=== PATIENT | female | born 1980 | race Caucasian/White ===

== ENCOUNTER 2017-03-07 09:32 | Emergency (ER) | payer MEDICAID ==
[2017-03-07 09:33] VITALS: BMI 25.0
[2017-03-07 09:37] VITALS: BP 134/89; PULSE 57; RESP 16; TEMP 97.9; O2SAT 98
--- NOTE | 2017-03-07 09:51 | ED PDOC ---
Arrival/HPI - General Historian: Patient - History of Present Illness Time/Duration: 1 week Symptom Onset: Sudden Symptom Course: Worsening Quality: Aching, Stabbing Severity Level: Moderate - General Chief Complaint: Back Pain Time Seen by Provider: 03/07/17 09:36 - History of Present Illness Narrative History of Present Illness (Text): 03/07/17 09:50 36-year-old female presents today with a six-day history of right-sided neck pain. Patient states 6 days ago she woke up with pain and stiffness to the right side of the neck. She denies fevers or chills. Denies difficulty breathing or swallowing. Patient states she's been taking Advil for pain without improvement. Patient states her partner has been giving her massages at home. Patient states the pain is worsening and is now radiating into the right arm. No chest pain or shortness of breath. Denies any trauma or injury. Patient rates the pain as achy and shooting. (Soo Angel) Past Medical History - Provider Review Nursing Documentation Reviewed: Yes - Travel History Have you recently traveled outside [place] w/in the past 3 mons?: No - Infectious Disease Hx of Infectious Diseases: None - Tetanus Immunization Tetanus Immunization: Unknown - Past Medical History Past Medical History: No Previous - Psychiatric Hx Substance Use: No - Past Surgical History Past Surgical History: No Previous - Anesthesia Hx Anesthesia: No Hx Anesthesia Reactions: No Hx Malignant Hyperthermia: No - Suicidal Assessment Feels Threatened In Home Enviroment: No Family/Social History - Physician Review Nursing Documentation Reviewed: Yes Family/Social History: Unknown Family HX Smoking Status: Light Smoker < 10 Cigarettes Daily Hx Alcohol Use: Yes Frequency of alcohol use: Socially Hx Substance Use: No Hx Substance Use Treatment: No Allergies/Home Meds Allergies/Adverse Reactions: Allergies No Known Allergies Allergy (Verified 05/09/14 19:52) Review of Systems - Review of Systems Constitutional: absent: Fatigue, Fevers Respiratory: absent: SOB, Cough Cardiovascular: absent: Chest Pain, Palpitations Gastrointestinal: absent: Abdominal Pain, Nausea, Vomiting Genitourinary Female: absent: Dysuria, Frequency, Hematuria Musculoskeletal: Neck Pain. absent: Arthralgias, Back Pain Skin: absent: Rash, Pruritis Neurological: absent: Headache, Dizziness Psychiatric: absent: Anxiety, Depression Physical Exam Vital Signs Reviewed: Yes Temperature: Afebrile Blood Pressure: Normal Pulse: Regular Respiratory Rate: Normal Appearance: Positive for: Well-Appearing, Non-Toxic, Comfortable Pain Distress: None Mental Status: Positive for: Alert and Oriented X 3 - Systems Exam Head: Present: Atraumatic Mouth: Present: Moist Mucous Membranes Neck: Present: Paraspinal Tenderness (+ right sided cervical paraspinal tenderness and right sided trapezius tenderness. ). No: Normal Range of Motion (Stiff full rom of neck), Meningeal Signs, MIDLINE TENDERNESS Respiratory/Chest: Present: Clear to Auscultation, Good Air Exchange. No: Respiratory Distress, Accessory Muscle Use, Decreased Breath Sounds, Retracting , Tachypneic Cardiovascular: Present: Regular Rate and Rhythm Upper Extremity: Present: Normal Inspection, Normal ROM, NORMAL PULSES, Neurovascularly Intact, Capillary Refill < 2s. No: Tenderness, Swelling, Erythema, Deformity Neurological: Present: GCS=15 Skin: Present: Warm, Dry, Normal Color. No: Rashes Psychiatric: Present: Alert, Oriented x 3 Vital Signs Temp Pulse Resp BP Pulse Ox 03/07/17 09:36 97.9 F 57 L 16 134/89 98 Medical Decision Making ED Course and Treatment: 03/07/17 10:24 I was available for consultation during PA evaluation. The chart was reviewed by me, and I agree with disposition. The documented history was done by the physician [facility]. The documented physical exam was done by the physician [facility] [place] [facility]. The documented procedures were done by the physician [facility]. (Audie Zelaya) 03/07/17 09:53 Patient nontoxic well-appearing in no distress with stable vital signs. Toradol, Valium Patient reassessment: Feeling better with medications I advised to followup with the primary care physician/orthopedist within the next 2 days. Return if symptoms worsen persist or new symptoms develop Patient verbalizes understanding of discharge instructions and need for immediate followup. Impression: neck pain Motrin every 6 hours as needed for pain Valium: one tablet every 8 hours as needed for muscle spasms: May cause drowsiness Followup with the orthopedist within the next 2 days Followup with primary care physician within the next 2 days Return if symptoms worsen persist or if new symptoms develop (Soo Angel) - Medication Orders Current Medication Orders: Discontinued Medications Diazepam (Valium) 5 mg PO ONCE ONE Stop: 03/07/17 09:49 Last Admin: 03/07/17 10:01 Dose: 5 mg Ketorolac Tromethamine (Toradol) 60 mg IM STAT STA Stop: 03/07/17 09:49 Last Admin: 03/07/17 10:01 Dose: 60 mg Disposition/Present on Arrival - Present on Arrival Any Indicators Present on Arrival: No History of DVT/PE: No History of Uncontrolled Diabetes: No Urinary Catheter: No History of Decub. Ulcer: No History Surgical Site Infection Following: None - Disposition Have Diagnosis and Disposition been Completed?: Yes Disposition Time: 09:54 Patient Plan: Discharge - Disposition Diagnosis: Neck pain Disposition: HOME/ ROUTINE Patient Problems: Current Active Problems Problem Status Onset Neck pain Acute Condition: GOOD Additional Instructions: Motrin every 6 hours as needed for pain Valium: one tablet every 8 hours as needed for muscle spasms: May cause drowsiness Followup with the orthopedist within the next 2 days Followup with primary care physician within the next 2 days Return if symptoms worsen persist or if new symptoms develop Prescriptions: diaZEpam [Valium] 5 mg PO Q8 PRN #6 tab PRN Reason: Muscle Spasm Ibuprofen [Motrin] 600 mg PO Q6H PRN #20 tab PRN Reason: pain/fever reduction Referrals: Chris Marquez DO [Staff Provider] - Follow up with primary Ava Kelly MD [Staff Provider] - Follow up with primary Forms: [employer] (Yoruba)
== END 2017-03-07 11:00 | disposition home or self-care (01) ==
LOC: ED 09:32
DX: M54.2 Cervicalgia (principal)
CPT/HCPCS: 96372; 99283; J1885

== ENCOUNTER 2017-07-22 19:21 | Emergency (ER) | payer MEDICAID ==
[2017-07-22 19:22] VITALS: BMI 25.0
[2017-07-22 19:35] VITALS: TEMP 98.7
--- NOTE | 2017-07-22 19:52 | ED PDOC ---
Arrival/HPI - General Chief Complaint: ENT Problem Time Seen by Provider: 07/22/17 19:49 Historian: Patient - History of Present Illness Narrative History of Present Illness (Text): 07/22/17 19:51 37yo female who present with 3days history of yellow productive cough, nasal congestion, subjective fever, sore throat and body ache. States she took Zyrtec on Thursday without relieve. Denies sick contact, nausea, vomiting, diarrhea, any other complaint. Past Medical History - Provider Review Nursing Documentation Reviewed: Yes - Infectious Disease Hx of Infectious Diseases: None - Tetanus Immunization Tetanus Immunization: Unknown - Past Medical History Past Medical History: No Previous - Cardiac Hx Cardiac Disorders: No - Pulmonary Hx Respiratory Disorders: No - Neurological Hx Neurological Disorder: No - HEENT Hx HEENT Disorder: No - Renal Hx Renal Disorder: No - Endocrine/Metabolic Hx Endocrine Disorders: No - Hematological/Oncological Hx Blood Disorders: No - Integumentary Hx Dermatological Disorder: No - Musculoskeletal/Rheumatological Hx Musculoskeletal Disorders: No - Gastrointestinal Hx Gastrointestinal Disorders: No - Genitourinary/Gynecological Hx Genitourinary Disorders: No - Psychiatric Hx Psychophysiologic Disorder: No Hx Substance Use: No - Past Surgical History Past Surgical History: No Previous - Anesthesia Hx Anesthesia: No Hx Anesthesia Reactions: No Hx Malignant Hyperthermia: No - Suicidal Assessment Feels Threatened In Home Enviroment: No Family/Social History - Physician Review Nursing Documentation Reviewed: Yes Family/Social History: Unknown Family HX Smoking Status: Light Smoker < 10 Cigarettes Daily Hx Alcohol Use: Yes Hx Substance Use: No Hx Substance Use Treatment: No Allergies/Home Meds Allergies/Adverse Reactions: Allergies No Known Allergies Allergy (Verified 07/22/17 19:29) Home Medications: Home Meds Medication Instructions Recorded Confirmed Cetirizine HCl/Pseudoephedrine 1 tab PO PRN PRN 07/22/17 07/22/17 [Zyrtec-D Tablet] Ibuprofen [Motrin Tab] 400 mg PO Q6 PRN 07/22/17 07/22/17 Review of Systems - Physician Review All systems were reviewed & negative as marked: Yes - Review of Systems Constitutional: Fevers Eyes: Normal ENT: Sore Throat, Sinus Congestion Respiratory: Cough, Sputum. absent: SOB, Wheezing Cardiovascular: Normal Gastrointestinal: Normal Genitourinary Female: Normal Musculoskeletal: Normal Skin: Normal Neurological: Normal Endocrine: Normal Hemo/Lymphatic: Normal Psychiatric: Normal Physical Exam Vital Signs Reviewed: Yes Vital Signs Temp Pulse Resp BP Pulse Ox 07/22/17 19:31 98.7 F 64 17 154/75 H 97 Temperature: Afebrile Blood Pressure: Normal Pulse: Regular Respiratory Rate: Normal Appearance: Positive for: Well-Appearing, Non-Toxic, Comfortable Pain Distress: None Mental Status: Positive for: Alert and Oriented X 3 - Systems Exam Head: Present: Atraumatic, Normocephalic Pupils: Present: PERRL Extroacular Muscles: Present: EOMI Conjunctiva: Present: Normal Mouth: Present: Moist Mucous Membranes Pharnyx: Present: ERYTHEMA. No: EXUDATE, TONSILS ENLARGED, Peritonsilar Swelling, Uvular Deviation, Muffled/Hoarse Voice, Strider Neck: Present: Normal Range of Motion Respiratory/Chest: Present: Clear to Auscultation, Good Air Exchange. No: Respiratory Distress, Accessory Muscle Use, Wheezes, Decreased Breath Sounds, Rales, Retracting, Rhonchi Cardiovascular: Present: Regular Rate and Rhythm, Normal S1, S2. No: Murmurs Abdomen: Present: Normal Bowel Sounds. No: Tenderness, Distention, Peritoneal Signs Back: Present: Normal Inspection Upper Extremity: Present: Normal Inspection. No: Cyanosis, Edema Lower Extremity: Present: Normal Inspection. No: Edema Neurological: Present: GCS=15, CN II-XII Intact, Speech Normal Skin: Present: Warm, Dry, Normal Color. No: Rashes Psychiatric: Present: Alert, Oriented x 3, Normal Insight, Normal Concentration Medical Decision Making ED Course and Treatment: 07/22/17 21:05 PT in Emergency department for stated history. she was afebrile. Rapid strep and influenza was negative CXR NAD Result was DW the pt. She will be treated and DC home with Zpack and antitussive. Advised to drink plenty of fluid and rest. TRT Emergency department for any new or worsening symptoms. - Lab Interpretations Lab Results: Lab Results 07/22/17 20:31: Influenza Typ A,B (EIA) Negative for flu a/b, Grp A Beta Strep Ag Negative - RAD Interpretation Radiology Orders: 07/22/17 19:50 CHEST TWO VIEWS (PA/LAT) [RAD] Stat - Medication Orders Current Medication Orders: Discontinued Medications Azithromycin (Zithromax) 500 mg PO STAT STA PRN Reason: Protocol Stop: 07/22/17 21:05 Guaifenesin (Robitussin) 200 mg PO Q4H STA Stop: 07/22/17 21:06 Disposition/Present on Arrival - Present on Arrival Any Indicators Present on Arrival: No History of DVT/PE: No History of Uncontrolled Diabetes: No Urinary Catheter: No History of Decub. Ulcer: No History Surgical Site Infection Following: None - Disposition Have Diagnosis and Disposition been Completed?: Yes Diagnosis: URI (upper respiratory infection) Disposition: HOME/ ROUTINE Disposition Time: 21:25 Patient Plan: Discharge Patient Problems: Current Active Problems Problem Status Onset URI (upper respiratory infection) Acute Condition: STABLE Discharge Instructions (ExitCare): Upper Respiratory Infection (ED) Additional Instructions: Take medication as directed Drink plenty of fluid and rest Follow up with your doctor Return to Emergency department for any new or worsening symptoms. Prescriptions: Azithromycin [Zithromax] 250 mg PO DAILY #4 tab Promethazine [Phenergan Syrup] 6.25 % PO Q6 #100 ml Referrals: [facility] [Outside] - Follow up with primary Forms: [employer] (Albanian)
[2017-07-22] MEDS ORDERED: guaiFENesin 200 mg/10 ml Syrup UD PO STA (21:05)
[2017-07-22 21:47] VITALS: BP 146/76; PULSE 60; RESP 20; O2SAT 100
--- NOTE | 2017-07-23 08:16 | RAD ---
HISTORY: cough COMPARISON: The the theNo prior. TECHNIQUE: Chest PA and lateral FINDINGS: LUNGS: No active pulmonary disease. PLEURA: No significant pleural effusion identified. No pneumothorax apparent. CARDIOVASCULAR: Normal. OSSEOUS STRUCTURES: Minor multilevel degenerative spondylosis of the thoracic spine VISUALIZED UPPER ABDOMEN: Normal. OTHER FINDINGS: None. IMPRESSION: No active disease.
== END 2017-07-22 21:49 | disposition home or self-care (01) ==
LOC: ED 19:21
DX: J06.9 Acute upper respiratory infection, unspecified (principal); F17.210 Nicotine dependence, cigarettes, uncomplicated